=== PATIENT | male | born 1990 | race American Indian/Alaskan Native ===

== ENCOUNTER 2017-06-30 22:25 | Emergency (ER) | payer OTHER ==
[2017-07-01 00:22] LABS: Urine Drugs of Abuse Note Disclamer
[2017-07-01 00:24] LABS: Bilirubin,Urine NEG (Negative); Blood,Urine NEG (Negative); Ketones,Urine TR mg/dL (Negative); Leukocyte Esterase,Urine NEG (Negative); Mucus,Urine 3+ /HPF; Nitrite,Urine NEG (Negative); Protein,Urine <15 mg/dL mg/dL (Negative)
[2017-07-01 00:53] LABS: Anion Gap 19 mmol/L; BUN/Creatinine Ratio 12.22; Basophils % (Auto) 0.5 % (0.0-1.8); Blood Urea Nitrogen 11 mg/dL (9-20); Calcium 9.6 mg/dL (8.4-10.2); Carbon Dioxide 24 mmol/L (22-30); Chloride 100.7 mmol/L (98-107); Eosinophils % (Auto) 3.2 % (0.0-4.3); Glucose 128 mg/dL (75-100); Hematocrit 42.1 % (35.5-45.6); Mean Corpuscular HGB Conc 33 % (32-34); Mean Corpuscular Hemoglobin 27 pg (28-32); Mean Corpuscular Volume 80 fl (84-94); Platelet Count 237 K/mm3 (140-440); Potassium 4.5 mmol/L (3.6-5.0); Red Blood Count 5.27 M/mm3 (3.65-5.03); Red Cell Distribution Width 14.9 % (13.2-15.2); Sodium 139 mmol/L (137-145)
--- NOTE | 2017-07-01 01:11 | Emergency Department Report ---
HPI - General Chief Complaint: Psych Time Seen by Provider: 07/01/17 00:54 - HPI HPI: Room 14 The patient is a 27-year-old male presenting with a chief complaint of suicidal ideation and suicidal gesture. The patient has a history of schizophrenia states he has had auditory hallucinations for "a while." The patient states the voices say "a lot of different things... Her myself, her other people." The patient states she's had suicidal ideation for one week stating "I want to hurt myself." The patient states today he attempted to hang himself by tying a rope to "kind of like a balcony" and then around his neck. The patient states he allowed his body weight to hang from the rope only for a few seconds before he removed himself. The patient never lost consciousness. Patient currently denies neck pain Location: Mental state, see above Duration: [see above] Quality: Suicidal Severity: Severe Modifying factors: [see above] Context: [see above] Mode of transportation: [not driving] ED Past Medical Hx - Past Medical History Previous Medical History?: Yes Hx Psychiatric Treatment: Yes (depression, schizophrenia) Additional medical history: hx kidney stones - Surgical History Past Surgical History?: No Additional Surgical History: denies - Family History Family history: no significant - Social History Smoking Status: Current Some Day Smoker Substance Use Type: None (denies illicit drug use), Alcohol (occasional) ED Review of Systems ROS: Stated complaint: SUICIDAL THOUGHTS/MH EVAL Other details as noted in HPI Comment: All other systems reviewed and negative Constitutional: denies: chills, fever Eyes: denies: eye pain, eye discharge, vision change ENT: denies: ear pain, throat pain Respiratory: denies: cough, shortness of breath, wheezing Cardiovascular: denies: chest pain, palpitations Endocrine: no symptoms reported Gastrointestinal: denies: abdominal pain, nausea, diarrhea Genitourinary: denies: urgency, dysuria Musculoskeletal: denies: back pain, joint swelling, arthralgia Skin: denies: rash, lesions Neurological: denies: headache, weakness, paresthesias Psychiatric: auditory hallucinations, suicidal thoughts Hematological/Lymphatic: denies: easy bleeding, easy bruising Physical Exam - Physical Exam Vital Signs: Vital Signs 06/30/17 23:10 Temperature 98.5 F Pulse Rate 66 Respiratory 18 Rate Blood Pressure 149/101 O2 Sat by Pulse 97 Oximetry Physical Exam: GENERAL: The patient is well-developed well-nourished male lying on stretcher not appearing to be in acute distress. [] HEENT: Normocephalic. Atraumatic. Extraocular motions are intact. Patient has moist mucous membranes. NECK: Supple. No meningitic signs are noted. There is no adenopathy noted. No ligature jesse seen. No stridor CHEST/LUNGS: Clear to auscultation. There is no respiratory distress noted. HEART/CARDIOVASCULAR: Regular. There is no tachycardia. There is no gallop rub or murmur. ABDOMEN: Abdomen is soft, nontender. Patient has normal bowel sounds. There is no abdominal distention. SKIN: There is no rash. There is no edema. There is no diaphoresis. NEURO: The patient is awake, alert, and oriented. The patient is cooperative. The patient has normal speech MUSCULOSKELETAL: There is no evidence of acute injury. ED Course Vital Signs 06/30/17 23:10 Temperature 98.5 F Pulse Rate 66 Respiratory 18 Rate Blood Pressure 149/101 O2 Sat by Pulse 97 Oximetry ED Medical Decision Making - Lab Data Result diagrams: 07/01/17 00:16 07/01/17 00:16 Laboratory Tests 06/30/17 07/01/17 07/01/17 Unknown 00:16 00:16 WBC RBC Hgb Hct MCV MCH MCHC RDW Plt Count Lymph % (Auto) [place] % (Auto) Eos % (Auto) Baso % (Auto) Lymph # [place] # Eos # Baso # Seg Neutrophils % Seg Neutrophils # Sodium 139 Potassium 4.5 Chloride 100.7 Carbon Dioxide 24 Anion Gap 19 BUN 11 Creatinine 0.9 Estimated GFR > 60 BUN/Creatinine Ratio 12.22 Glucose 128 H Calcium 9.6 Total Bilirubin Direct Bilirubin Indirect Bilirubin AST ALT Alkaline Phosphatase Total Protein Albumin Albumin/Globulin Ratio Urine Color Yellow Urine Turbidity Slightly-cloudy Urine pH 6.0 Ur Specific [place] 1.023 Urine Protein <15 mg/dl Urine Glucose (UA) Neg Urine Ketones Tr Urine Blood Neg Urine Nitrite Neg Urine Bilirubin Neg Urine Urobilinogen 4.0 Ur Leukocyte Esterase Neg Urine WBC (Auto) 5.0 Urine RBC (Auto) 2.0 Urine Mucus 3+ Salicylates Urine Opiates Screen Urine Methadone Screen Acetaminophen Ur Barbiturates Screen Ur Phencyclidine Scrn Ur Amphetamines Screen U Benzodiazepines Scrn Urine Cocaine Screen U Marijuana (THC) Screen Drugs of Abuse Note Plasma/Serum Alcohol < 0.01 07/01/17 07/01/17 07/01/17 00:16 00:45 00:55 WBC 4.0 L RBC 5.27 H Hgb 14.0 Hct 42.1 MCV 80 L MCH 27 L MCHC 33 RDW 14.9 Plt Count 237 Lymph % (Auto) 31.2 [place] % (Auto) 6.8 Eos % (Auto) 3.2 Baso % (Auto) 0.5 Lymph # 1.2 [place] # 0.3 Eos # 0.1 Baso # 0.0 Seg Neutrophils % 58.3 Seg Neutrophils # 2.3 Sodium Potassium Chloride Carbon Dioxide Anion Gap BUN Creatinine Estimated GFR BUN/Creatinine Ratio Glucose Calcium Total Bilirubin 0.60 Direct Bilirubin < 0.2 Indirect Bilirubin 0.4 AST 14 ALT 11 Alkaline Phosphatase 85 Total Protein 7.4 Albumin 4.3 Albumin/Globulin Ratio 1.4 Urine Color Urine Turbidity Urine pH Ur Specific [place] Urine Protein Urine Glucose (UA) Urine Ketones Urine Blood Urine Nitrite Urine Bilirubin Urine Urobilinogen Ur Leukocyte Esterase Urine WBC (Auto) Urine RBC (Auto) Urine Mucus Salicylates Urine Opiates Screen Presumptive negative Urine Methadone Screen Presumptive negative Acetaminophen Ur Barbiturates Screen Presumptive negative Ur Phencyclidine Scrn Presumptive negative Ur Amphetamines Screen Presumptive negative U Benzodiazepines Scrn Presumptive negative Urine Cocaine Screen Presumptive negative U Marijuana (THC) Screen Presumptive negative Drugs of Abuse Note Disclamer Plasma/Serum Alcohol 07/01/17 07/01/17 00:55 00:55 WBC RBC Hgb Hct MCV MCH MCHC RDW Plt Count Lymph % (Auto) [place] % (Auto) Eos % (Auto) Baso % (Auto) Lymph # [place] # Eos # Baso # Seg Neutrophils % Seg Neutrophils # Sodium Potassium Chloride Carbon Dioxide Anion Gap BUN Creatinine Estimated GFR BUN/Creatinine Ratio Glucose Calcium Total Bilirubin Direct Bilirubin Indirect Bilirubin AST ALT Alkaline Phosphatase Total Protein Albumin Albumin/Globulin Ratio Urine Color Urine Turbidity Urine pH Ur Specific [place] Urine Protein Urine Glucose (UA) Urine Ketones Urine Blood Urine Nitrite Urine Bilirubin Urine Urobilinogen Ur Leukocyte Esterase Urine WBC (Auto) Urine RBC (Auto) Urine Mucus Salicylates < 0.3 L Urine Opiates Screen Urine Methadone Screen Acetaminophen < 15.0 Ur Barbiturates Screen Ur Phencyclidine Scrn Ur Amphetamines Screen U Benzodiazepines Scrn Urine Cocaine Screen U Marijuana (THC) Screen Drugs of Abuse Note Plasma/Serum Alcohol - Radiology Data Radiology results: image reviewed (cervical spine x-ray) interpreted by me: Cervical spine x-ray-no acute fracture. No prevertebral swelling - Differential Diagnosis suicidal ideation, schizophrenia Critical care attestation.: If time is entered above; I have spent that time in minutes in the direct care of this critically ill patient, excluding procedure time. ED Disposition Clinical Impression: Suicidal ideation, Suicide gesture, Schizophrenia Disposition: [id number]/TX-65 PSY HOSP/PSY UNIT Is pt being admited?: No Does the pt Need Aspirin: No Condition: Serious Referrals: PRIMARY CARE, [Primary Care Provider] - 3-5 Days Time of Disposition: 01:12 (awaiting acceptance)
[2017-07-01 01:23] LABS: Alanine Aminotransferase 11 units/L (7-56); Albumin 4.3 g/dL (3.9-5); Albumin/Globulin Ratio 1.4 %; Alkaline Phosphatase 85 units/L (35-129); Total Protein 7.4 g/dL (6.3-8.2)
[2017-07-01 01:27] LABS: Bilirubin,Direct < 0.2 mg/dL (0-0.2); Bilirubin,Indirect 0.4 mg/dL
--- NOTE | 2017-07-01 07:35 | XRay Report ---
CERVICAL SPINE, 3 views: History: Neck injury, attempted hanging. Findings: The vertebral bodies, disk spaces, posterior elements and prevertebral soft tissues are unremarkable. The dens is intact. No acute fracture or malalignment is identified. Impression: 1. No evidence for acute injury to the cervical spine.
--- NOTE | 2017-07-01 15:42 | Consultation ---
History of Present Illness - Reason for Consult Consult date: 07/01/17 Reason for consult: psychiatric evaluation, suicidal ideation - Chief Complaint Chief complaint: "I'm battling demons." 27 year old male presents complaining of suicidal ideation with plan and recent attempt via hanging ( he removed himself from the weight of the rope per the record). Pt has history of Schizophrenia and previous diagnosis of MDD, with prior hospitalization roughly 2 years ago for similar presentation. He reports running out of psychotropic medications 2-3 weeks ago but possibly 1-2 months ago. He is a poor historian. He does not recall the name of the medications but remembers being on Seroquel previously. Since then Pt experiencing worsening depression and command auditory hallucinations. Pt reported voices telling him to kill himself as well as other people. He continues to endorse suicidal ideation and current command auditory hallucinations. He complains of headache and states it is chronic and started occurring when voices started years ago. Pt denies homicidal intent and has displayed no aggressive behaviors or agitation. He reports THC use, last time 2 months ago and no alcohol use "in a while." Medications and Allergies Allergies Allergy/AdvReac Type Severity Reaction Status Date / Time No Known Allergies Allergy Unverified 04/20/14 12:45 Past psychiatric history - Past Medical History Past Medical History: No medical history - past Psychiatric treatment and history Psych: Depression, Schizophrenia psychiatric treatment history: previous suicidal gesture by placing rope around his neck 2 years ago - Social History Social history: other (renting a room. ) Mental Status Exam - Vital signs Last Vital Signs Temp 98.1 F 07/01/17 08:23 Pulse 87 07/01/17 08:23 Resp 18 07/01/17 08:23 BP 150/94 07/01/17 08:23 Pulse Ox 100 07/01/17 08:23 - Exam Narrative exam: no eye contact. He states this is because he has a headache Orientation: time, place, person Affect: depressed Mood: congruent with affect Thought content: paranoia (reports thinking everyone is after him) Thought Process: Intact Perceptions: command, hallucinations Speech: normal rate and pattern Concentration: focused Motor activity: normal Level of consciousness: alert Memory: Intact Sleep Symptoms: Difficulty Falling Asleep Appetite: decreased Interaction: cooperative Results Result Diagrams: 07/01/17 00:16 07/01/17 00:16 Abnormal lab results 07/01/17 07/01/17 07/01/17 Range/Units 00:16 00:16 00:55 WBC 4.0 L (4.5-11.0) K/mm3 RBC 5.27 H (3.65-5.03) M/mm3 MCV 80 L (84-94) fl MCH 27 L (28-32) pg Glucose 128 H (75-100) mg/dL Salicylates < 0.3 L (2.8-20.0) mg/dL All other labs normal. Assessment and Plan Assessment and plan: Impression: historical diagnosis of MDD and schizophrenia Medication non-compliance AH to harm self and others Suicidal gesture by placing rope around his neck Recommendation: 1013 and transfer to inpatient psychiatric facility Start Seroquel 100mg hs for psychotic symptoms.
[2017-07-01 21:58] VITALS: BP 126/73
== END 2017-07-02 04:44 ==
LOC: ED 22:25 → EEVIPCON 22:25 → ED 07-02 04:44
DX: F20.9 Schizophrenia, unspecified (principal); R45.851 Suicidal ideations; F17.200 Nicotine dependence, unspecified, uncomplicated
CPT/HCPCS: 36415; 72040; 80048; 80074; 80307; 81001; 85025; 99285; G0480; 80320

== ENCOUNTER 2022-05-11 14:01 | Emergency (ER) | payer MEDICARE ==
[2022-05-11 15:49] LABS: Eosinophils # (Auto) 0.4 K/mm3 (0.0-0.4); Eosinophils % (Auto) 9.4 % (0.0-4.3); Hematocrit 43.9 % (35.5-45.6); Hemoglobin 14.3 gm/dl (11.8-15.2); Lymphocytes # (Auto) 1.3 K/mm3 (1.2-5.4); Lymphocytes % (Auto) 29.4 % (13.4-35.0); Mean Corpuscular HGB Conc 33 % (32-34); Mean Corpuscular Volume 84 fl (84-94); Monocytes # (Auto) 0.5 K/mm3 (0.0-0.8); Monocytes % (Auto) 11.6 % (0.0-7.3); Platelet Count 229 K/mm3 (140-440); Red Blood Count 5.24 M/mm3 (3.65-5.03); Red Cell Distribution Width 14.7 % (13.2-15.2)
[2022-05-11 16:06] LABS: BUN/Creatinine Ratio 14; Blood Urea Nitrogen 14 mg/dL (9-20); Calcium 9.4 mg/dL (8.4-10.2); Hemolysis Index 4
--- NOTE | 2022-05-11 17:08 | Emergency Department Report ---
HPI - General Chief Complaint: Psych - HPI HPI: Reassessment 1 The patient is a 32-year-old male present with chief complaint of suicidal ideation. Patient states he has had suicidal thoughts for the past 2 to 3 days. Patient denies any active attempts at harming himself and denies having a plan. Patient also admits to intermittent right frontal headache for the past 2 to 3 weeks. Patient denies preceding trauma. Patient states he has not sought medical attention for his headache yet. Patient has a history of schizophrenia ED Past Medical Hx - Past Medical History Previous Medical History?: Yes Hx Psychiatric Treatment: Yes (depression, schizophrenia) Additional medical history: hx kidney stones - Surgical History Past Surgical History?: No Additional Surgical History: denies - Family History Family history: no significant - Social History Smoking Status: Current Some Day Smoker Substance Use Type: None (denies illicit drug use), Alcohol (occasional) ED Review of Systems ROS: Stated complaint: MH EVAL/SUICIDAL THOUGHTS Other details as noted in HPI Constitutional: no symptoms reported Eyes: denies: eye pain ENT: denies: throat pain Respiratory: no symptoms reported Cardiovascular: denies: chest pain Endocrine: no symptoms reported Gastrointestinal: denies: abdominal pain Genitourinary: denies: dysuria Musculoskeletal: denies: back pain Neurological: headache Psychiatric: suicidal thoughts Physical Exam - Physical Exam Vital Signs: Vital Signs 05/11/22 14:49 Temperature 97.9 F Pulse Rate 63 Respiratory 17 Rate Blood Pressure 127/83 [Right] O2 Sat by Pulse 100 Oximetry Physical Exam: GENERAL: The patient is well-developed well-nourished male standing in not appearing to be in acute distress. [] HEENT: Normocephalic. Atraumatic. Extraocular motions are intact. Patient has moist mucous membranes. NECK: Supple. No meningitic signs are noted. Trachea midline CHEST/LUNGS: Clear to auscultation. There is no respiratory distress noted. HEART/CARDIOVASCULAR: Regular. There is no tachycardia. There is no gallop rub or murmur. ABDOMEN: Abdomen is soft, nontender. Patient has normal bowel sounds. There is no abdominal distention. SKIN: There is no rash. There is no edema. There is no diaphoresis. NEURO: The patient is awake, alert, and oriented. The patient is cooperative. The patient has no focal neurologic deficits. The patient has normal speech and gait. Cranial nerves II through XII grossly intact MUSCULOSKELETAL: There is no evidence of acute injury. ED Course Vital Signs 05/11/22 14:49 Temperature 97.9 F Pulse Rate 63 Respiratory 17 Rate Blood Pressure 127/83 [Right] O2 Sat by Pulse 100 Oximetry ED Medical Decision Making - Lab Data Result diagrams: 05/11/22 17:59 05/11/22 15:06 Laboratory Tests 05/11/22 05/11/22 05/11/22 15:06 15:06 15:06 WBC 4.4 L RBC 5.24 H Hgb 14.3 Hct 43.9 MCV 84 MCH 27 L MCHC 33 RDW 14.7 Plt Count 229 Lymph % (Auto) 29.4 [place] % (Auto) 11.6 H Eos % (Auto) 9.4 H Baso % (Auto) 1.0 Lymph # (Auto) 1.3 [place] # (Auto) 0.5 Eos # (Auto) 0.4 Baso # (Auto) 0.0 Seg Neutrophils % 48.6 Seg Neutrophils # 2.1 Sodium 141 Potassium 4.3 Chloride 102.4 Carbon Dioxide 26 Anion Gap 17 BUN 14 Creatinine 1.0 Estimated GFR > 60 BUN/Creatinine Ratio 14 Glucose 79 Calcium 9.4 Salicylates < 0.3 L Acetaminophen Plasma/Serum Alcohol 05/11/22 05/11/22 05/11/22 15:06 17:59 17:59 WBC 4.2 L RBC 5.11 H Hgb 14.2 Hct 42.4 MCV 83 L MCH 28 MCHC 34 RDW 15.0 Plt Count 224 Lymph % (Auto) 31.2 [place] % (Auto) 9.2 H Eos % (Auto) 11.9 H Baso % (Auto) 1.2 Lymph # (Auto) 1.3 [place] # (Auto) 0.4 Eos # (Auto) 0.5 H Baso # (Auto) 0.1 Seg Neutrophils % 46.5 Seg Neutrophils # 1.9 Sodium Potassium Chloride Carbon Dioxide Anion Gap BUN Creatinine Estimated GFR BUN/Creatinine Ratio Glucose Calcium Salicylates Acetaminophen 5.0 L 5.0 L Plasma/Serum Alcohol 05/11/22 17:59 WBC RBC Hgb Hct MCV MCH MCHC RDW Plt Count Lymph % (Auto) [place] % (Auto) Eos % (Auto) Baso % (Auto) Lymph # (Auto) [place] # (Auto) Eos # (Auto) Baso # (Auto) Seg Neutrophils % Seg Neutrophils # Sodium Potassium Chloride Carbon Dioxide Anion Gap BUN Creatinine Estimated GFR BUN/Creatinine Ratio Glucose Calcium Salicylates Acetaminophen Plasma/Serum Alcohol < 0.01 - Radiology Data Radiology results: report reviewed (CT head), image reviewed (CT head) [facility] [address] [place] [address] Cat Scan Report Signed Patient: OSEI DAVIS MR#: [id number] : 1990 Acct:[id number] Age/Sex: 32 / M ADM Date: 05/11/22 Loc: ED Attending Dr: Ordering Physician: JACI COATES MD Date of Service: 05/11/22 Procedure(s): CT head/brain wo con Accession Number(s): [id number] cc: JACI COATES MD NONENHANCED CT SCAN OF THE HEAD: INDICATION / CLINICAL INFORMATION: 32 years Male; Headache. TECHNIQUE: Routine CT head without contrast. All CT scans at this location are performed using CT dose reduction for ALARA by means of automated exposure control. COMPARISON: None. FINDINGS: BRAIN / INTRACRANIAL CONTENTS: No acute hemorrhage, mass effect, midline shift, hydrocephalus, or acute, large territorial infarct. No chronic infarct or focal atrophy. Normal brain volume and ventricular/sulcal size for age. No significant white matter abnormality. CRANIOCERVICAL JUNCTION: No significant abnormality. ORBITS: No s ignificant abnormality of visualized orbits. SINUSES / MASTOIDS: No significant abnormality of the visualized paranasal sinuses or mastoid air cells. ADDITIONAL FINDINGS: None. IMPRESSION: No acute focal parenchymal lesion in the brain Signer Name: Dede Kerns MD Signed: 05/11/2022 8:16 PM Workstation Name: [id number] Transcribed By: BS Dictated By: Dede Rizvi MD Electronically Authenticated By: Dede Rizvi MD Signed Date/Time: 05/11/222015 DD/ 13 TD/TT: Print Cancel - Differential Diagnosis Suicidal ideation, headaches, intracranial mass Critical care attestation.: If time is entered above; I have spent that time in minutes in the direct care of this critically ill patient, excluding procedure time. ED Disposition Clinical Impression: Suicidal ideation, Headache Disposition: 30 STILL A PATIENT Is pt being admited?: No Does the pt Need Aspirin: No Condition: Stable Time of Disposition: 20:46 (Awaiting psych eval/placement)
[2022-05-11 18:22] LABS: Basophils # (Auto) 0.1 K/mm3 (0.0-0.1); Basophils % (Auto) 1.2 % (0.0-1.8); Eosinophils # (Auto) 0.5 K/mm3 (0.0-0.4); Eosinophils % (Auto) 11.9 % (0.0-4.3); Hematocrit 42.4 % (35.5-45.6); Hemoglobin 14.2 gm/dl (11.8-15.2); Lymphocytes # (Auto) 1.3 K/mm3 (1.2-5.4); Lymphocytes % (Auto) 31.2 % (13.4-35.0); Mean Corpuscular HGB Conc 34 % (32-34); Mean Corpuscular Volume 83 fl (84-94); Monocytes # (Auto) 0.4 K/mm3 (0.0-0.8); Monocytes % (Auto) 9.2 % (0.0-7.3); Platelet Count 224 K/mm3 (140-440); Red Blood Count 5.11 M/mm3 (3.65-5.03)
--- NOTE | 2022-05-11 20:20 | Cat Scan Report ---
NONENHANCED CT SCAN OF THE HEAD: INDICATION / CLINICAL INFORMATION: 32 years Male; Headache. TECHNIQUE: Routine CT head without contrast. All CT scans at this location are performed using CT dos e reduction for ALARA by means of automated exposure control. COMPARISON: None. FINDINGS: BRAIN / INTRACRANIAL CONTENTS: No acute hemorrhage, mass effect, midline shift, hydrocephalus, or acu te, large territorial infarct. No chronic infarct or focal atrophy. Normal brain volume and ventricul ar/sulcal size for age. No significant white matter abnormality. CRANIOCERVICAL JUNCTION: No significant abnormality. ORBITS: No significant abnormality of visualized orbits. SINUSES / MASTOIDS: No significant abnormality of the visualized paranasal sinuses or mastoid air eliezer ls. ADDITIONAL FINDINGS: None. IMPRESSION: No acute focal parenchymal lesion in the brain Signer Name: Dede Kerns MD Signed: 05/11/2022 8:16 PM Workstation Name: [id number]
[2022-05-11] MEDS ORDERED: BUTALB/ACETAMINOPHEN/CAFFEINE TAB PO ONE (20:45)
[2022-05-12 07:10] LABS: Amphetamine Screen,Urine Negative; Benzodiazepines Screen,Urine Negative; Cocaine Screen,Urine Negative; Methadone Screen,Urine Negative; Opiate Screen,Urine Negative
[2022-05-12 07:15] LABS: Bacteria,Urine 1+ /HPF (Negative); Bilirubin,Urine NEG (Negative); Blood,Urine NEG (Negative); Color,Urine Yellow (Yellow); Mucus,Urine 3+ /HPF; Protein,Urine <15 mg/dL mg/dL (Negative)
[2022-05-12 07:22] LABS: Cannabinoid Screen,Urine Positive
[2022-05-12] MEDS ORDERED: BUTALB/ACETAMINOPHEN/CAFFEINE TAB PO SCH (10:30)
--- NOTE | 2022-05-12 11:11 | Consultation ---
History of Present Illness - Reason for Consult Consult date: 05/12/22 Reason for consult: suicidal ideation - History of Present Psychiatric Illness HPI: The patient is a 32-year-old male present with chief complaint of suicidal ideation. Patient states he has had suicidal thoughts for the past 2 to 3 days. Patient denies any active attempts at harming himself and denies having a plan. Patient also admits to intermittent right frontal headache for the past 2 to 3 weeks. Patient denies preceding trauma. Patient states he has not sought medical attention for his headache yet. Patient has a history of schizophrenia. The patient is a 32 year old male with history of schizophrenia who presents to the with suicidal ideation. The patient was seen today. He is calm, alert and oriented x3. The patient reports having suicidal ideation x 3 days and worsening auditory hallucinations; he states that he was on Invega sustenna DAY, which he last had about a year ago. He reports that he has been going through stressful situations; father passed 6 years ago. He reports that voices " telling me to hurt myself but I try to ignore them." PAST PSYCHIATRIC HISTORY Diagnoses: schizophrenia Suicide attempts or Self-harm behavior: Denies Prior psychiatric hospitalizations: Yes Substance Abuse history: marijuana Previous psychiatric medications tried: Invega Outpatient treatment: Unknown PAST MEDICAL HISTORY: None reported Family Psychiatric History: None reported or documented SOCIAL HISTORY Marital Status: Single Living Arrangements: Lives with mother Employment Status: unemployed Access to guns/weapons: Denies Education: Some college History of Abuse: Yes Legal History: Incarceration REVIEW OF SYSTEMS Constitutional: Negative for weight loss ENT: Negative for stridor Respiratory: Negative for cough or hemoptysis All other systems reviewed and are negative MENTAL STATUS EXAMINATION General Appearance and Behavior: Age appropriate, good hygiene, wearing appropriate clothes, good eye contact, anxious, cooperative Cooperation: Participating/engaged Psychomotor Behavior: Psychomotor normal Mood:Depressed Affect and affective range: congruent with stated mood Thought Process: Goal directed Thought Content: Hallucinations/ suicidal Speech: Normal tone and pace Suicidal Ideation:Yes Homicidal Ideation: Denies Hallucinations: Auditory Delusions: None Impulse Control: Limited Insight and Judgment: Limited insight and judgment Memory: Limited Attention: attentive Orientation: Alert, oriented Diagnoses: Schizophrenia Disorder Treatment Plan 1013 Continue home meds Strat Risperidone 1mg po BID Start Trazodone 50mg po QHS PSYCHOTHERAPY: Supportive psychotherapy provided MEDICAL: Per primary team DELIRIUM PRECAUTIONS: Please re-orient patient frequently, keep lights on during the day, and minimize benzodiazepines and opiates as these medications could worsen patient's confusion. [employer]: Per medical team DISPOSITION: Recommend acute psychiatric inpatient treatment. Will follow. Thanks. Thank you for the consult. Case staffed with Dr. Newton Medications and Allergies Medications and Allergies Allergies Allergy/AdvReac Type Severity Reaction Status Date / Time No Known Allergies Allergy Verified 05/11/22 14:48 Active Meds: Active Medications Acetaminophen/Butalbital/Caffeine (Butalb/Acetaminophen/Caffeine Tab) 2 tab PO ONCE@1030 TIERRA Stop: 05/12/22 14:00 Last Admin: 05/12/22 10:30 Dose: 2 tab Mental Status Exam - Vital signs Last Vital Signs Temp 98.6 F 05/12/22 07:47 Pulse 55 L 05/12/22 07:47 Resp 18 05/12/22 07:47 BP 111/69 05/12/22 07:47 Pulse Ox 99 05/12/22 07:47 Results Result Diagrams: 05/11/22 17:59 05/11/22 15:06 Abnormal lab results 05/11/22 05/11/22 05/11/22 Range/Units 15:06 15:06 15:06 WBC 4.4 L (4.5-11.0) K/mm3 RBC 5.24 H (3.65-5.03) M/mm3 MCV (84-94) fl MCH 27 L (28-32) pg [place] % (Auto) 11.6 H (0.0-7.3) % Eos % (Auto) 9.4 H (0.0-4.3) % Eos # (Auto) (0.0-0.4) K/mm3 Salicylates < 0.3 L (2.8-20.0) mg/dL Acetaminophen 5.0 L (10.0-30.0) ug/mL 05/11/22 05/11/22 Range/Units 17:59 17:59 WBC 4.2 L (4.5-11.0) K/mm3 RBC 5.11 H (3.65-5.03) M/mm3 MCV 83 L (84-94) fl MCH (28-32) pg [place] % (Auto) 9.2 H (0.0-7.3) % Eos % (Auto) 11.9 H (0.0-4.3) % Eos # (Auto) 0.5 H (0.0-0.4) K/mm3 Salicylates (2.8-20.0) mg/dL Acetaminophen 5.0 L (10.0-30.0) ug/mL All other labs normal.
[2022-05-12] MEDS: risperiDONE 1 MG TAB PO SCH ×2 (12:59→22:03)
[2022-05-12] MEDS ORDERED: traZODone 50 MG TAB PO SCH (22:00)
[2022-05-13 07:55] VITALS: BP 111/69
--- NOTE | 2022-05-13 11:40 | Emergency Department Report ---
Blank Doc - Documentation Documentation: S: No events reported overnight O: Vital Signs - 8 hr 05/13/22 05/13/22 07:54 09:45 Temperature 98.5 F Pulse Rate 56 L Respiratory 15 Rate Blood Pressure 111/69 [Right] O2 Sat by Pulse 99 99 Oximetry E: Schizophrenia P: 1013/awaiting inpatient psych. Awaiting COVID results
[2022-05-13] MEDS: risperiDONE 1 MG TAB PO SCH (12:04)
--- NOTE | 2022-05-13 12:22 | Progress Note ---
Subjective - Reason for Consult Consult date: 05/13/22 Reason for consult: mental health evaluation - Chief Complaint Chief complaint: The patient was seen this morning. He reports feeling better. The patient states sleep and appetite as good. He denies any current suicidal/homicidal ideation and denies hallucinations. REVIEW OF SYSTEMS Constitutional: Negative for weight loss ENT: Negative for stridor Respiratory: Negative for cough or hemoptysis All other systems reviewed and are negative MENTAL STATUS EXAMINATION General Appearance and Behavior: Age appropriate, good hygiene, wearing appropriate clothes, good eye contact, cooperative Cooperation: Participating/engaged Psychomotor Behavior: Psychomotor normal Mood:OK Affect and affective range: congruent with stated mood Thought Process: Goal directed Thought Content: Reality oriented Speech: Normal tone and pace Suicidal Ideation:Denies Homicidal Ideation: Denies Hallucinations: Denies Delusions: None Impulse Control: Limited Insight and Judgment: Limited insight and judgment Memory: Limited Attention: attentive Orientation: Alert, oriented Diagnoses: Schizophrenia Disorder Treatment Plan [id number] Continue home meds Continue Risperidone 1mg po BID Continue Trazodone 50mg po QHS PSYCHOTHERAPY: Supportive psychotherapy provided MEDICAL: Per primary team DELIRIUM PRECAUTIONS: Please re-orient patient frequently, keep lights on during the day, and minimize benzodiazepines and opiates as these medications could worsen patient's confusion. NETTING WEAVER: Per medical team DISPOSITION: Do not recommend acute psychiatric inpatient treatment. Technical Marketing Consultant will provide patient with psychiatric outpatient resources. Will sign off. Thanks. Thank you for the consult. Case staffed with Dr. Newton Medications and Allergies Mental Status Exam - Vital signs Last Vital Signs Temp 98.5 F 05/13/22 07:54 Pulse 56 L 05/13/22 07:54 Resp 15 05/13/22 07:54 BP 111/69 05/13/22 07:54 Pulse Ox 99 05/13/22 09:45
== END 2022-05-13 18:16 | disposition still patient (30) ==
LOC: ED 14:01 → EEVIPCON 14:01 → ED 05-13 18:16
DX: R45.851 Suicidal ideations (principal); R51.9 Headache, unspecified; F32.9 Major depressive disorder, single episode, unspecified; F20.9 Schizophrenia, unspecified; Z87.442 Personal history of urinary calculi; F17.290 Nicotine dependence, other tobacco product, uncomplicated
CPT/HCPCS: 36415; 70450; 80048; 80307; 80320; 81001; 85025; 99285; G0480